=== PATIENT | female | born 1970 | race Caucasian/White ===

== ENCOUNTER 2018-03-13 13:35 | Emergency (ER) | payer MEDICAID, OTHER ==
[~2018-03-13] VITALS: Wt 89.0 kg
[~2018-03-13 13:35] MED LIST: ALBU8.5H8 IH; BECL8.7A5 IH
[2018-03-13] MEDS ORDERED: IBUP-1542 PO (16:28)
[2018-03-13] MEDS ORDERED: SULF1TAB31 PO (16:28)
[2018-03-13] MEDS ORDERED: CEPH-443 PO (16:28)
--- NOTE | 2018-03-13 16:35 | ERD ---
ER Documentation Chief Complaint Chief Complaint LEFT LABIA POSSIBLE ABCESS X 4 DAYS HPI 48-year-old female patient with past medical history of asthma presents to ED complaining of an abscess to her left vaginal area that started about 4 days ago. Patient reports that the pain has improved. Denies any vaginal bleeding, vaginal discharge, dysuria, urgency, frequency. Denies any fever, chills, abdominal pain, nausea, vomiting, diarrhea, neck stiffness, constipation. ROS All systems reviewed and are negative except as per history of present illness. Medications Home Meds Active Scripts Ibuprofen* (Motrin*) 600 Mg Tab, 600 MG PO Q6, #30 TAB Prov:SHANICEJULIO C Adair PA-C 03/13/18 Cephalexin* (Keflex*) 500 Mg Capsule, 500 MG PO QID for 7 Days, CAP Prov:JULIO C PRASAD PA-C 03/13/18 Sulfamethoxazole/Trimethoprim* (Bactrim Ds* Tablet) 1 Each Tablet, 1 TAB PO BID for 7 Days, #14 TAB Prov:JULIO C PRASAD PA-C 03/13/18 Reported Medications Albuterol Sulfate* (Proair HFA*) 8.5 Gm Hfa.aer.ad, 8.5 GM IH PRN 08/22/12 Beclomethasone Dip* (Qvar 80*) 7.3 Gm Inha, 7.3 GM IH BID 08/22/12 Allergies Allergies: Coded Allergies: No Known Allergy (Unverified , 03/13/18) PMhx/Soc History of Surgery: Yes () Anesthesia Reaction: No Hx Neurological Disorder: No Hx Respiratory Disorders: Yes (ASTHMA) Hx Cardiac Disorders: No Hx Psychiatric Problems: No Hx Miscellaneous Medical Probl: No Hx Alcohol Use: No Hx Substance Use: No Hx Tobacco Use: No FmHx Family History: No diabetes, No coronary disease Physical Exam Vitals Vital Signs Date Temp Pulse Resp B/P (MAP) Pulse Ox O2 O2 Flow FiO2 Time Delivery Rate 03/13/18 98.1 64 18 119/64 99 13:44 (82) Physical Exam Const: Vkv-ahy-ssdtyohoc, well-nourished. In no acute distress. Head: Atraumatic, normocephalic Eyes: Normal Conjunctiva without injection. No purulent discharge. ENT: Normal external ear, nose. Moist oropharynx without tonsillar exudates. Non-erythematous pharynx. Uvula midline. No drooling. No trismus. Neck: No cervical midline tenderness. Full range of motion. No meningismus. No cervical lymphadenopathy. No JVD. Resp: Clear to auscultation bilaterally. No wheezing, rhonchi, rales, or crackles. No accessory muscle use. No retractions. Cardio: Regular rate and rhythm. No murmurs, rubs or gallops. Abd: Soft, nontender, non distended. Normal bowel sounds. No palpable masses. No rebound tenderness. No guarding. Negative McBurney's point. Negative psoas sign. Negative obturator sign. : See exam in MDM. Skin: No petechiae or rashes Back: No midline tenderness. No CVA tenderness. Ext: No cyanosis, or edema. Neur: Awake and alert. Normal gait. Normal coordination. Psych: Normal Mood and Affect Results 24 hrs Laboratory Tests Test 03/13/18 15:45 03/13/18 15:47 Bedside Urine pH (LAB) 6.5 Bedside Urine Protein (LAB) Trace Bedside Urine Glucose (UA) Negative Bedside Urine Ketones (LAB) Negative Bedside Urine Blood 3+ Bedside Urine Nitrite (LAB) Negative Bedside Urine Leukocyte Esterase (L Trace POC Beta HCG, Qualitative NEGATIVE Procedures/MDM 48-year-old female patient with no significant past medical history presents to ED complaining of a lump in the left labia area that started about 4 days ago but is improving according to patient. Patient is afebrile and nontoxic- appearing. Urine negative. Urine dip showed trace leukocyte esterase, 3+ hematuria. Patient's left labial abscess is indurated however no fluctuance was noted. Patient had no tenderness palpation. No indication for incision and drainage at this time as there is no fluctuance. Low suspicion for deep space infection. She will could be given a trial of oral antibiotics, and report return precautions for 2-day recheck to see if incision and drainage is indicated at this time. Low suspicion for necrotizing fasciitis, acute abdomen, surgical abdomen, appendicitis, diverticulitis, incarcerated or strangulated hernia, palpitation, or other emergent conditions. 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 No erythema. No lymphatic streaking. Diagnosis: Abscess of left genital labia Discharge medications: Ibuprofen, Keflex, Bactrim Follow up with primary care physician in 1-2 days. Instructed patient to return to the ED sooner for any worsening symptoms. Compresses recommended. Patient's questions were answered. Patient is hemodynamically stable. Patient understood and agreed with discharge plan. Patient discharged stable. Disclaimer: Inadvertent spelling and grammatical errors are likely due to EHR/dictation software use and do not reflect on the overall quality of patient care. Also, please note that the electronic time recorded on this note does not necessarily reflect the actual time of the patient encounter. Departure Diagnosis: Primary Impression: Abscess of left genital labia Condition: Stable Patient Instructions: Abscess (, Antibiotic Treatment Only) Referrals: [facility] [address] [facility] [address] [place] [address]AB[address]LEME ARACEL[address] [place] [address] [address] [address] [place] [address] [address] [facility] [address] [facility] [address] [address] [address] [facility] [address] [place] [address] [facility] [address] [place] [address] [facility] [address] - GUERDA BILLY [address], [facility] [address] [address] [address] [facility]. [address], [facility] [address] [address] [facility] [address] [place] [address] [facility] Hours: 8:00 am - 5:00 pm [facility] () Usted se mendoza hecho un examen mdico de control que le indica que no est en julia condicin que requiera tratamiento urgente en el Departamento de Emergencia. Un estudio ms profundo y el tratamiento de jessica condicin pueden esperar sin ningn riesgo hasta que usted sea atendida/o en el consultorio de jessica mdico o julia clnica. Es responsabilidad suya arreglar julia david para el seguimiento del edison. MANEJO DE CONDICIONES NO URGENTES EN EL FUTURO 1) Si usted tiene un mdico de atencin primaria: Usted debera llamar a jessica mdico de atencin primaria antes de venir al departamento de emergencia. Despus de las horas de consultorio, jessica doctor o jessica asociado/a est disponible por telfono. El mdico o enfermero de martinez en el servicio telefnico puede asesorarle por sarmad medio para atender el problema, o edison contrario se puede programar julia david. 2) Si usted no tiene un mdico de atencin primaria: Llame al mdico o clnica de referencia que aparece abajo rian las horas de consultorio para hacer ujlia david para que le vean. CLINICAS: [facility] [phone] [facility] [phone] [facility] [phone] [facility] [phone] [facility] [phone] [facility]. [phone] [address] [facility] () Usted se mendoza hecho un examen mdico de control que le indica que no est en julia condicin que requiera tratamiento urgente en el Departamento de Emergencia. Un estudio ms profundo y el tratamiento de jessica condicin pueden esperar sin ningn riesgo hasta que usted sea atendida/o en el consultorio de jessica mdico o julia clnica. Es responsabilidad suya arreglar julia david para el seguimiento del edison. MANEJO DE CONDICIONES NO URGENTES EN EL FUTURO 1) Si usted tiene un mdico de atencin primaria: Usted debera llamar a jessica mdico de atencin primaria antes de venir al departamento de emergencia. Despus de las horas de consultorio, jessica doctor o jessica asociado/a est disponible por telfono. El mdico o enfermero de martinez en el servicio telefnico puede asesorarle por sarmad medio para atender el problema, o edison contrario se puede programar julia david. 2) Si usted no tiene un mdico de atencin primaria: Llame al mdico o condado institucions de referencia que aparece abajo rian las horas de consultorio para hacer julia david para que le vean. SI USTED NO PUEDE PAGAR PARA ROSIE UN MEDICO puede ir a: [facility] [address] [place] [address] [facility] [address] [place] [address] [facility] [address] [place] [address] [facility] [address] [place] [address] Additional Instructions: Llame al doctor MAANA y lesia julia DAVID PARA DENTRO DE 2-3 MARTE.Dgale a la secretaria que nosotros le instruimos hacer esta david.Avise o llame si jessica condicin se empeora antes de la david. Regresa aqui si peor o no mejor. WOUND CHECK:CONSULTE A JESSICA MDICO EN 2 ibarra para rosie JESSICA HERIDA. JULIO C PRASAD PA-C Mar 13, 2018 16:35
[2018-03-13 16:36] VITALS: BP 117/69; PULSE 87; RESP 18
== END 2018-03-13 16:37 | disposition home or self-care (01) ==
LOC: FTE 13:35
DX: N76.4 Abscess of vulva (principal); J45.909 Unspecified asthma, uncomplicated
CPT/HCPCS: 81003; 81025; Z7502; 99284